=== PATIENT | female | born 1990 | race Hispanic/Latino ===

== ENCOUNTER 2021-02-12 02:27 | Inpatient (IN) | payer BC ==
[~2021-02-12] VITALS: Ht 165.1 cm; Wt 64.9 kg
[2021-02-12] MEDS ORDERED: ONDANSETRON HCL INJ 2MG/ML 2ML 2 MG/ML VIAL IV STA (03:14)
[2021-02-12] MEDS ORDERED: FAMOTIDINE 20 MG/2 ML VIAL IV STA (03:14)
[2021-02-12] MEDS ORDERED: SODIUM CHLORIDE 0.9% 1000ML 1,000 ML IV STA ×2 (03:14→04:15)
[2021-02-12] MEDS ORDERED: DICYCLOMINE HCL 20 MG/2 ML VIAL IM ONE (03:15)
[2021-02-12 03:37] LABS: BASOPHILS % 0.2 % (0.0-1.0); EOSINOPHILS # (AUTO) 0.1 (0.0-0.4); EOSINOPHILS % 0.5 % (0.0-6.0); HEMATOCRIT 41.6 % (34.2-44.1); HEMOGLOBIN 13.2 g/dL (12.0-16.0); LYMPHOCYTES % 8.9 % (18.0-39.1); MEAN CORPUSCULAR HEMOGLOBIN 27.4 pg (28-32); MEAN CORPUSCULAR HGB CONC 31.7 g/dL (31-35); MEAN CORPUSCULAR VOLUME 86.5 fL (81-99); MONOCYTES # (AUTO) 0.6 (0.2-0.8); MONOCYTES % 5.4 % (4.4-11.3); NEUTROPHILS # (AUTO) 9.4 (2.1-6.9); NEUTROPHILS % 84.8 % (38.7-80.0); PLATELET COUNT 413 x10e3/uL (140-360); RED BLOOD COUNT 4.81 x10e6/uL (3.6-5.1); RED CELL DISTRIBUTION WIDTH 12.5 % (11.7-14.4)
[2021-02-12 03:40] LABS: AMPHETAMINES SCREEN,URINE NEGATIVE (NEGATIVE); BENZODIAZEPINES SCREEN,URINE NEGATIVE (NEGATIVE); CLARITY,URINE CLOUDY (CLEAR); COLOR,URINE AMBER (YELLOW); KETONES,URINE 1+ (NEGATIVE); LEUKOCYTE ESTERASE ,URINE TRACE (NEGATIVE); NITRITE,URINE NEGATIVE (NEGATIVE); PHENCYCLIDINE SCREEN,URINE NEGATIVE (NEGATIVE); PROTEIN,URINE DIPSTICK 1+ (NEGATIVE)
[2021-02-12 03:41] LABS: URINE UROBILINOGEN 2 mg/dL (0.2 - 1)
[2021-02-12 03:49] LABS: BACTERIA,URINE MANY /HPF; EPITHELIAL CELLS,URINE FEW /LPF; MUCUS,URINE MANY (RARE); WBC,URINE (MAN) >50 /HPF (0-5)
[2021-02-12 04:20] LABS: ALBUMIN 3.3 g/dL (3.5-5.0); ALBUMIN/GLOBULIN RATIO 0.9 (0.8-2.0); ANION GAP 14.4 mmol/L (8-16); CALCIUM 9.2 mg/dL (8.4-10.2); CREATININE, SERUM 0.7 mg/dL (0.57-1.11); POTASSIUM 3.4 mmol/L (3.5-5.1)
[2021-02-12] MEDS ORDERED: ONDANSETRON HCL INJ 2MG/ML 2ML 2 MG/ML VIAL IV PRN (04:45)
[2021-02-12] MEDS ORDERED: SODIUM CHLORIDE 0.9% 1000ML 1,000 ML IV SCH (04:45)
[2021-02-12] MEDS ORDERED: IOPAMIDOL 370 MG/ML 200 ML INFUS..BTL INJ ONE (04:50)
[2021-02-12] MEDS ORDERED: SODIUM CHLORIDE 0.9% 50ML 50 ML ONE (04:50)
[2021-02-12] MEDS ORDERED: PIPERACILLIN/TAZOBACTAM 3.375 GM in SODIUM CHLORIDE 0.9% 50ML 50 ML IV ONE (05:00)
[2021-02-12] MEDS: Morphine 4mg Syringe 4 MG/ML INJ IV PRN ×4 (05:51→22:00)
[2021-02-12] MEDS ORDERED: LACTATED RINGER'S 1,000 ML INJ SCH (07:30)
[2021-02-12] MEDS: LACTATED RINGER'S 1,000 ML INJ SCH ×2 (10:04→17:38)
[2021-02-12] MEDS ORDERED: POTASSIUM CHLORIDE 20 MEQ TAB CR PO PRN (10:15)
[2021-02-12] MEDS ORDERED: ALBUTEROL/IPRATROPIUM 3 ML NEB NEB PRN (10:15)
[2021-02-12] MEDS ORDERED: DEXTROSE 50% SYRINGE 50 ML IV PRN (10:15)
[2021-02-12] MEDS ORDERED: SIMETHICONE 80 MG CHEW PO PRN (10:15)
[2021-02-12] MEDS ORDERED: DIPHENHYDRAMINE HCL 25 MG CAP PO PRN (10:15)
[2021-02-12] MEDS ORDERED: BENZONATATE 100 MG CAP PO PRN (10:15)
[2021-02-12] MEDS ORDERED: MELATONIN 5 MG TABLET PO PRN (10:15)
[2021-02-12] MEDS ORDERED: HYDRALAZINE HCL 20 MG/ML VIAL IV PRN (10:15)
[2021-02-12] MEDS ORDERED: DOCUSATE SODIUM 100 MG CAP PO PRN (10:15)
[2021-02-12] MEDS ORDERED: ACETAMINOPHEN 325 MG TAB PO PRN (10:15)
[2021-02-12] MEDS ORDERED: LIDOCAINE 4% PATCH TP PRN (10:15)
[2021-02-12 10:22] VITALS: BP 126/66
[2021-02-12 10:33] VITALS: BP 126/66
[2021-02-12 11:29] VITALS: BP 115/67
[2021-02-12] MEDS ORDERED: POTASSIUM CHLORIDE 20MEQ/100ML 200 ML IV ONE (11:30)
[2021-02-12] MEDS: PIPERACILLIN/TAZOBACTAM 3.375 GM in SODIUM CHLORIDE 0.9% 50ML 50 ML IV SCH ×2 (12:26→18:09)
[2021-02-12 15:28] VITALS: BP 118/72
[2021-02-12 20:00] VITALS: BP 111/68
[2021-02-12 21:00] VITALS: BP 111/68
[2021-02-12] MEDS: ONDANSETRON HCL INJ 2MG/ML 2ML 2 MG/ML VIAL IV PRN ×2 (22:00→22:11)
[2021-02-13] VITALS: BP 106/66
[2021-02-13] MEDS: LACTATED RINGER'S 1,000 ML INJ SCH ×2 (00:04→06:43)
[2021-02-13] MEDS: PIPERACILLIN/TAZOBACTAM 3.375 GM in SODIUM CHLORIDE 0.9% 50ML 50 ML IV SCH ×4 (00:04→17:11)
[2021-02-13] MEDS: Morphine 4mg Syringe 4 MG/ML INJ IV PRN ×4 (02:45→17:11)
[2021-02-13 04:00] VITALS: BP 112/68
[2021-02-13 05:17] LABS: BASOPHILS % 0.1 % (0.0-1.0); EOSINOPHILS # (AUTO) 0.1 (0.0-0.4); EOSINOPHILS % 0.5 % (0.0-6.0); HEMATOCRIT 38.5 % (34.2-44.1); HEMOGLOBIN 11.6 g/dL (12.0-16.0); LYMPHOCYTES # (AUTO) 1.3 (1.0-3.2); LYMPHOCYTES % 9.7 % (18.0-39.1); MEAN CORPUSCULAR HGB CONC 30.1 g/dL (31-35); MEAN CORPUSCULAR VOLUME 89.5 fL (81-99); MONOCYTES # (AUTO) 0.6 (0.2-0.8); MONOCYTES % 4.7 % (4.4-11.3); NEUTROPHILS # (AUTO) 10.9 (2.1-6.9); NEUTROPHILS % 84.7 % (38.7-80.0); PLATELET COUNT 329 x10e3/uL (140-360); RED CELL DISTRIBUTION WIDTH 12.8 % (11.7-14.4)
[2021-02-13 05:54] LABS: ALBUMIN 2.8 g/dL (3.5-5.0); ALBUMIN/GLOBULIN RATIO 0.9 (0.8-2.0); ANION GAP 12.8 mmol/L (8-16); CALCIUM 8.5 mg/dL (8.4-10.2); CREATININE, SERUM 0.6 mg/dL (0.57-1.11); POTASSIUM 3.8 mmol/L (3.5-5.1)
[2021-02-13] MEDS: ONDANSETRON HCL INJ 2MG/ML 2ML 2 MG/ML VIAL IV PRN ×2 (06:43→17:11)
[2021-02-13] MEDS: PANTOPRAZOLE SOD 40 MG TABEC PO SCH (07:30)
[2021-02-13 07:56] VITALS: BP 117/71
[2021-02-13] MEDS: D5NS/KCL 20MEQ 1,000 ML IV SCH ×2 (11:50→19:00)
[2021-02-13] MEDS ORDERED: ENOXAPARIN SOD INJ 40 MG/0.4 ML SYR SC SCH (17:00)
[2021-02-13] MEDS ORDERED: ACETAMINOPHEN 1000 MG/100 ML IV PRN (17:00)
[2021-02-13] MEDS ORDERED: MELATONIN 5 MG TABLET PO PRN (17:00)
[2021-02-13] MEDS ORDERED: PERIPHERAL TPN FORMULA 1 BAG IV SCH (20:00)
[2021-02-13 20:32] VITALS: BP 95/50
[2021-02-13 21:40] VITALS: BP 95/50
[2021-02-14] VITALS (8 sets, daily range): BP systolic 99–127; BP diastolic 56–78
[2021-02-14] MEDS: PIPERACILLIN/TAZOBACTAM 3.375 GM in SODIUM CHLORIDE 0.9% 50ML 50 ML IV SCH ×4 (00:25→17:08)
[2021-02-14] MEDS: ONDANSETRON HCL INJ 2MG/ML 2ML 2 MG/ML VIAL IV PRN (01:59)
[2021-02-14] MEDS ORDERED: SODIUM CHLORIDE 0.9% 250ML 250 ML ONE (04:45)
[2021-02-14] MEDS: Morphine 4mg Syringe 4 MG/ML INJ IV PRN (05:02)
[2021-02-14] MEDS ORDERED: BUPIVACAINE 0.25% 30ML SDV ONE (06:12)
[2021-02-14 07:01] LABS: ALBUMIN 2.6 g/dL (3.5-5.0); ALBUMIN/GLOBULIN RATIO 0.7 (0.8-2.0); ANION GAP 10.4 mmol/L (8-16); CALCIUM 8.4 mg/dL (8.4-10.2); CHOL/HDL RATIO 3.9 (3.0-3.6); CREATININE, SERUM 0.57 mg/dL (0.57-1.11); MAGNESIUM 1.9 MG/DL (1.3-2.1); PHOSPHORUS 1.7 MG/DL (2.3-4.7); POTASSIUM 3.4 mmol/L (3.5-5.1)
[2021-02-14 07:23] LABS: % IRON SATURATION 8 % (15-50); IRON 17 ug/dL (50-170); TOTAL IRON BINDING CAPACITY 225 ug/dL (261-478); TRANSFERRIN 161 mg/dL (180-382)
[2021-02-14 07:28] LABS: THYROID STIMULATING HORMONE 2.699 uIU/mL (0.350-4.940)
[2021-02-14] MEDS ORDERED: IOPAMIDOL 300MG/ML 50ML INFUS..BTL IV ONE (08:29)
[2021-02-14] MEDS: PANTOPRAZOLE SOD 40 MG TABEC PO SCH (08:30)
[2021-02-14] MEDS ORDERED: HYDROCODONE/APAP 7.5MG-325MG 1 EA TAB PO PRN (12:00)
[2021-02-14] MEDS ORDERED: METOCLOPRAMIDE HCL 10 MG/2ML VIAL ONE (12:35)
[2021-02-14] MEDS ORDERED: DEXAMETHASONE SOD PHOS INJ 4 MG/ML SDV ONE (12:35)
[2021-02-14] MEDS ORDERED: POVIDONE IODINE 0.05% 0.05 % ML PO ONE (12:35)
[2021-02-14] MEDS ORDERED: KETOROLAC TROMETHAMINE 30 MG/ML VIAL ONE (12:35)
[2021-02-14] MEDS ORDERED: ONDANSETRON HCL INJ 2MG/ML 2ML 2 MG/ML VIAL ONE (12:35)
[2021-02-14] MEDS ORDERED: ROCURONIUM BROMIDE 10 MG/ML 5ML VIAL IV ONE (12:35)
[2021-02-14] MEDS ORDERED: NEOSTIGMINE 1 MG/ML 10ML VIAL ONE (12:35)
[2021-02-14] MEDS ORDERED: SEVOFLURANE INHAL SOLN 250 ML PEN BTL ONE (12:35)
[2021-02-14] MEDS ORDERED: LIDOCAINE HCL 2% LOCAL INJ 5 ML SDV VIAL INJ ONE (12:35)
[2021-02-14] MEDS ORDERED: PROPOFOL IV EMULSION 10 MG/ML 20 ML VIAL ONE (12:35)
[2021-02-14] MEDS ORDERED: GLYCOPYRROLATE INJ 0.2 MG/ML VIAL ONE (12:35)
[2021-02-14] MEDS: SODIUM CHLORIDE 0.9% 1000ML 1,000 ML IV SCH ×2 (13:19→21:42)
[2021-02-14] MEDS ORDERED: MIDAZOLAM HCL 2 MG/2 ML VIAL ONE (14:30)
[2021-02-14] MEDS ORDERED: FENTANYL CITRATE/PF 100MCG/2 ML INJ ONE (14:30)
[2021-02-15] MEDS: PIPERACILLIN/TAZOBACTAM 3.375 GM in SODIUM CHLORIDE 0.9% 50ML 50 ML IV SCH ×4 (00:18→17:00)
[2021-02-15 00:21] VITALS: BP 101/63
[2021-02-15] MEDS: Morphine 4mg Syringe 4 MG/ML INJ IV PRN (01:40)
[2021-02-15 05:38] LABS: BASOPHILS % 0.1 % (0.0-1.0); EOSINOPHILS % 0.5 % (0.0-6.0); HEMATOCRIT 35.1 % (34.2-44.1); HEMOGLOBIN 10.9 g/dL (12.0-16.0); LYMPHOCYTES # (AUTO) 1.8 (1.0-3.2); LYMPHOCYTES % 21.3 % (18.0-39.1); MEAN CORPUSCULAR HEMOGLOBIN 27.2 pg (28-32); MEAN CORPUSCULAR HGB CONC 31.1 g/dL (31-35); MEAN CORPUSCULAR VOLUME 87.5 fL (81-99); MONOCYTES # (AUTO) 0.8 (0.2-0.8); NEUTROPHILS # (AUTO) 5.9 (2.1-6.9); NEUTROPHILS % 68.8 % (38.7-80.0); PLATELET COUNT 357 x10e3/uL (140-360); RED BLOOD COUNT 4.01 x10e6/uL (3.6-5.1); RED CELL DISTRIBUTION WIDTH 13.3 % (11.7-14.4)
[2021-02-15 05:41] VITALS: BP 102/55
[2021-02-15 06:00] LABS: ALANINE AMINOTRANSFERASE 98 IU/L (0-55); ALBUMIN 2.6 g/dL (3.5-5.0); ALBUMIN/GLOBULIN RATIO 0.6 (0.8-2.0); ALKALINE PHOSPHATASE 145 IU/L (40-150); ANION GAP 12.6 mmol/L (8-16); BLOOD UREA NITROGEN < 5 mg/dL (7-26); CALCIUM 8.7 mg/dL (8.4-10.2); CARBON DIOXIDE 27 mmol/L (22-29); CHLORIDE 104 mmol/L (98-107); CREATININE, SERUM 0.61 mg/dL (0.57-1.11); EST GLOMERULAR FILTRATION RATE 117 ML/MIN (60-); GLUCOSE 79 mg/dL (74-118); POTASSIUM 3.6 mmol/L (3.5-5.1); SODIUM 140 mmol/L (136-145)
[2021-02-15 06:14] LABS: BUN/CREATININE RATIO 8 (6-25)
[2021-02-15 08:04] VITALS: BP 91/52
[2021-02-15] MEDS: SODIUM CHLORIDE 0.9% 1000ML 1,000 ML IV SCH (08:43)
[2021-02-15] MEDS: PANTOPRAZOLE SOD 40 MG TABEC PO SCH (08:49)
[2021-02-15 08:53] VITALS: BP 91/52
[2021-02-15] MEDS ORDERED: IRON SUCROSE 100 MG in SODIUM CHLORIDE 0.9% 100 ML 100 ML IV SCH (09:00)
[2021-02-15] MEDS ORDERED: HYDROCODONE/APAP 7.5MG-325MG 1 EA TAB PO PRN (10:15)
[2021-02-15 11:42] VITALS: BP 95/51
[2021-02-15 16:13] VITALS: BP 107/61
== END 2021-02-15 18:45 | disposition home or self-care (01) | DRG 417 ==
LOC: ER 02:35 → ERHOLD 04:44 → MED/SURG3 09:07
PROVIDERS: ADMIT Internal Medicine; ATTEND Internal Medicine
PROC: BF532Z0 Other Imaging of Gallbladder and Bile Ducts using Fluorescing Agent, Intraoperative (ICD-10-PCS; 2021-02-14)
PROC: 0FT44ZZ Resection of Gallbladder, Percutaneous Endoscopic Approach (ICD-10-PCS; principal; 2021-02-14 09:30)
DX: K80.10 Calculus of gallbladder with chronic cholecystitis without obstruction (principal); K85.10 Biliary acute pancreatitis without necrosis or infection; E66.01 Morbid (severe) obesity due to excess calories; E16.2 Hypoglycemia, unspecified; Z68.23 Body mass index [BMI] 23.0-23.9, adult; Z20.822 Contact with and (suspected) exposure to COVID-19
CPT/HCPCS: 36415; 74177; 74181; 74300; 80048; 80053; 80061; 80307; 81001; 81025; 82150; 82607; 82746; 82948; 83036; 83540; 83690; 83735; 84100; 84443; 84466; 85025; 85045; 87086; 88304; 94799; 99284; C1766; J0500; J1100; J1650; J1756; J1885; J2001; J2250; J2270; J2405; J2543; J2710; J2765; J3010; J3480; J7030; J7050; J7121; J7799; Q9967; U0002